=== PATIENT | female | born 1955 | race Caucasian/White ===

== ENCOUNTER 2018-03-13 10:40 | Outpatient (CLI) | payer BC | END 2018-03-13 10:41 | disposition home or self-care (01) | LOC: BICMAMMO 10:40 | PROVIDERS: ATTEND Physician Assistant | DX: Z12.31 Encounter for screening mammogram for malignant neoplasm of breast (principal); Z85.9 Personal history of malignant neoplasm, unspecified | CPT/HCPCS: 77063; 77067 ==

== ENCOUNTER 2018-05-18 09:46 | Outpatient (CLI) | payer BC | END 2018-05-18 09:47 | disposition home or self-care (01) | LOC: BICULT 09:46 | PROVIDERS: ATTEND Otolaryngology Otolaryngic Allergy | DX: E04.1 Nontoxic single thyroid nodule (principal); E07.89 Other specified disorders of thyroid | CPT/HCPCS: 76536 ==

== ENCOUNTER 2019-03-14 12:28 | Outpatient (CLI) | payer BC ==
--- NOTE | 2019-03-14 15:29 | MMO ---
Bilateral MAMMO Bilat Screen [facility]DI. CLINICAL HISTORY: Patient is 63 years old and is seen for screening. The patient has no family history of breast cancer. The patient has a history of other cancer 2016. The patient has a history of right needle biopsy at an unknown age - benign. VIEWS: The views performed were: bilateral craniocaudal and bilateral mediolateral oblique. FILMS COMPARED: The present examination has been compared to prior imaging studies performed at [facility] on 02/17/2016, and at [facility] on 02/18/2017, 02/22/2017 and 03/13/2018. This study has been interpreted with the assistance of computer-aided detection. MAMMOGRAM FINDINGS: There are scattered fibroglandular densities. There are no suspicious masses, suspicious calcifications, or new areas of architectural distortion. IMPRESSION: THERE IS NO MAMMOGRAPHIC EVIDENCE OF MALIGNANCY. A ROUTINE FOLLOW-UP MAMMOGRAM IN 1 YEAR IS RECOMMENDED. ACR BI-RADS Category 1 - Negative MAMMOGRAPHY NOTE: 1. A negative mammogram report should not delay a biopsy if a dominant of clinically suspicious mass is present. 2. Approximately 10% to 15% of breast cancers are not detected by mammography. 3. Adenosis and dense breasts may obscure an underlying neoplasm. Reported by: MARY ROBERSON MD Electonically Signed: [id number]
== END 2019-03-14 12:29 | disposition home or self-care (01) ==
LOC: SCSMAMMO 12:28
PROVIDERS: ATTEND Physician Assistant
DX: Z12.31 Encounter for screening mammogram for malignant neoplasm of breast (principal); Z85.89 Personal history of malignant neoplasm of other organs and systems; Z91.89 Other specified personal risk factors, not elsewhere classified
CPT/HCPCS: 77067

== ENCOUNTER 2025-04-10 08:00 | Outpatient (CLI) | payer MEDICARE | END 2025-04-10 08:01 | disposition home or self-care (01) | LOC: PET 08:00 | PROVIDERS: ATTEND Internal Medicine Hematology & Oncology | DX: C7A.090 Malignant carcinoid tumor of the bronchus and lung (principal); K76.9 Liver disease, unspecified | CPT/HCPCS: 78815; A9552 ==